=== PATIENT | male | born 1940 | race Caucasian/White ===

== ENCOUNTER 2017-01-03 11:43 | Day surgery (SDC) | payer OTHER, BC ==
[2017-01-02 15:04] VITALS: BMI 28.7
--- NOTE | 2017-01-03 12:22 | HP ---
Satellite [facility] - Chief Complaint History of Present Illness: 76 year old man with renal failure who requires creation of AV access for dialysis. He is right handed. 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) Musculoskeletal: Yes: Chronic low back pain - Current Medications Current Medications: Home Medications Medication Instructions Recorded Amlodipine Besylate [Norvasc -] 10 mg PO DAILY 08/10/13 Aspirin [ASA -] 81 mg PO DAILY 08/10/13 Atorvastatin Ca [Lipitor] 20 mg PO DAILY 08/10/13 Fenofibrate 145 mg PO DAILY 08/10/13 Metoprolol Tartrate [Lopressor -] 100 mg PO DAILY 08/10/13 Cholecalciferol (Vitamin D3) 1,000 unit PO DAILY 08/22/13 [Vitamin D3] Multivitamin [Multivitamins] 1 each PO DAILY 08/22/13 Omeprazole [Prilosec] 40 mg PO DAILY 08/22/13 Acetaminophen [Tylenol .Regular 650 mg PO Q4H PRN #0 tablet 08/27/13 Strength -] Ergocalciferol [Vitamin D2] 50,000 unit PO Q7D@1000 01/02/17 Satellite Physical Exam - Physical Examination General Appearance: Well Nourished ENT: Clear Lung: Clear to auscultation Heart: Regular rate & rhythm Abdomen: Soft Extremities: No edema Satellite Impression/Plan - Impression/Plan Impression: Chronic Kidney Disease Operative Procedure: Creation AV fistula left arm Date to be Performed: 01/03/17
[2017-01-03] MEDS ORDERED: HEPARIN NA (PORCINE) 5,000 UNITS/ML 1ML VIAL ONE (14:17)
[2017-01-03] MEDS ORDERED: LIDOCAINE HCL 1%, 10 MG/ML (20ML VIAL) ONE (14:17)
[2017-01-03] MEDS ORDERED: POVIDONE-IODINE OINTMENT 10% - 28.4 GM TUBE ONE (14:29)
[2017-01-03] MEDS ORDERED: MIDAZOLAM HCL 2 MG/2 ML SINGLE DOSE VIAL ONE ×2 (14:47→14:58)
[2017-01-03] MEDS ORDERED: LIDOCAINE HCL 1%, 10 MG/ML (50 mL VIAL) IJ ONE (15:07)
[2017-01-03] MEDS ORDERED: PROPOFOL 20 ML ONE (15:11)
[2017-01-03] MEDS ORDERED: PAPAVERINE HCL 30 MG/1 ML 10 ML VIAL NR ONE (15:14)
[2017-01-03] MEDS ORDERED: POVIDONE-IODINE OINTMENT 10% - 28.4 GM TUBE TP ONE (15:22)
[2017-01-03] MEDS ORDERED: ONDANSETRON 4 MG/2 ML VIAL IVPUSH PRN (16:08)
[2017-01-03] MEDS ORDERED: PROMETHAZINE HCL 25 MG/1 ML VIAL IVPUSH PRN (16:08)
--- NOTE | 2017-01-03 16:08 | OP ---
Operative Note - Note: Operative Date: 01/03/17 Pre-Operative Diagnosis: Renal failure Operation: Creation AV fistula left arm Findings: Patent cephalic vein and brachial and radial artery Post-Operative Diagnosis: Same as Pre-op Surgeon: Kosta Garcia Chief Operating Officer: Doretha Vela Anesthesiologist/CONSUMER LOAN SPECIALIST: Eric Leblanc Anesthesia: Fractional Estimated Blood Loss (mls): 25
[2017-01-03] MEDS ORDERED: ACETAMINOPHEN 325 MG TABLET (FP) PO PRN ×2 (16:09→16:26)
[2017-01-03] MEDS ORDERED: SODIUM CHLORIDE 1,000 ML IV SCH (16:15)
[2017-01-03] MEDS ORDERED: oxyCODONE HCL 5 MG TABLET PO PRN (16:26)
[2017-01-03 18:06] VITALS: TEMP 97.8
--- NOTE | 2017-01-03 18:26 | OP ---
DATE OF OPERATION: 01/03/2017 SURGEON: Kosta Hernandez M.D. ELECTION SUPERVISOR: Chet Lira PROCEDURE: Creating arteriovenous fistula, left arm. PREOPERATIVE DIAGNOSIS: Renal failure. POSTOPERATIVE DIAGNOSIS: Renal failure. ANESTHESIA: Fractional. ANESTHESIOLOGIST: Eric Leblanc M.D. OPERATIVE FINDINGS: The cephalic vein was patent in the antecubital fossa with continuous runoff in the upper arm. The brachial artery and bifurcation were patent at the same level. OPERATIVE PROCEDURE: Following routine patient identification, side and site verification, intravenous tissue was established. The left arm was prepped with Chloraprep. Timeout was performed. Then 1% Xylocaine was then infiltrated in the antecubital fossa. A longitudinal incision made. The subcutaneous tissues were then divided using cautery for hemostasis. The cephalic vein was identified. It was mobilized the length of the incision. It was ligated distally and incised. It was distended with heparin and propiverine solution. Number 5 and number 8 feeding tubes were passed proximally without resistance. The vein was filled with heparin solution. Additional side branches of the vein were then ligated and divided. Basilic vein branch was initially left intact but later ligated, as it was of small caliber. The wound was then deepened through the muscle fascia, and the brachial artery identified proximally. It was encircled with a vessel loop. Distal dissection allowed identification of the radial, ulnar, and interosseus branches, all of which were individually secured with vessel loops. The radial artery was exposed for approximately 2 cm distally. The arteries were then occluded with vessel loops and bulldog clamps and then an incision was made in the proximal radial artery extending from the origin for approximately 8 mm. The end of the vein was then spatulated and anastomosed to the side of the artery throwing suture of 6-0 Prolene. Prior to completion of the suture line, the artery was allowed to back bleed and flush, and the vein was flushed with heparin solution. Suture line was completed, and all vessels released. There was good flow through the anastomosis with a palpable thrill proximally. The wound was then closed with interrupted suture of 3-0 Vicryl in the subcutaneous tissues and skin geoffrey. A sterile dressing was applied, and the patient was taken to the recovery room in stable condition. KOSTA HERNANDEZ M.D. PRASHANT/[id number]
[2017-01-03 19:56] VITALS: BP 138/70; PULSE 73
--- NOTE | 2017-01-08 07:39 | SURG ---
Surgery [employer] Technical Lead Note [employer] Technical Lead: Doretha Vela PA-C Date of Service: 01/03/17 Diagnosis: Renal failure Procedure: Creation AV fistula left arm I was present for the entirety of the operative procedure. For further detail, please refer to operative report. Visit type - Case Type Case Type: Scheduled Admission - Emergency Emergency Visit: No - New patient This patient is new to me today: Yes Date on this admission: 01/03/17
--- NOTE | 2017-01-08 07:46 | SURG ---
Surgery Icu Nurse Note Icu Nurse: Doretha Vela PA-C Date of Service: 01/03/17 Diagnosis: Renal failure Procedure: left upper extremity arteriovendous fistula I was present for the entirety of the operative procedure. For further detail, please refer to operative report. Visit type - Case Type Case Type: Scheduled Admission - Emergency Emergency Visit: No - New patient This patient is new to me today: Yes Date on this admission: 01/03/17
== END 2017-01-03 19:10 | disposition home or self-care (01) ==
LOC: JASU-SURG 11:43
PROVIDERS: ATTEND Surgery
PROC: 03180ZD Bypass Left Brachial Artery to Upper Arm Vein, Open Approach (ICD-10-PCS; principal; 2017-01-03 13:30)
DX: I12.0 Hypertensive chronic kidney disease with stage 5 chronic kidney disease or end stage renal disease (principal)
CPT/HCPCS: 36415; 84132; 94760; J1644

== ENCOUNTER 2021-04-19 04:29 | Day surgery (SDC) | payer OTHER, BC ==
[2021-04-15 12:41] VITALS: BMI 25.1
[2021-04-19] MEDS ORDERED: MIDAZOLAM HCL 2 MG/2 ML SINGLE DOSE VIAL ONE (13:53)
[2021-04-19] MEDS ORDERED: ceFAZolin SODIUM 1 GM VIAL IVPB ONE (14:07)
[2021-04-19] MEDS ORDERED: LIDOCAINE HCL 2% JELLY 10 ML CARTRIDGE ONE (14:15)
[2021-04-19] MEDS ORDERED: LIDOCAINE HCL 2% JELLY 10 ML CARTRIDGE TP ONE (14:23)
[2021-04-19] MEDS ORDERED: ONDANSETRON 4 MG/2 ML VIAL IVPUSH PRN (14:46)
[2021-04-19] MEDS ORDERED: ONDANSETRON 4 MG/2 ML VIAL ONE (14:54)
[2021-04-19] MEDS ORDERED: LACTATED RINGERS SOLUTION 1,000 ML IV SCH (15:00)
[2021-04-19] MEDS ORDERED: hydrALAZINE HCL 20 MG/ML VIAL ONE (15:31)
[2021-04-19] MEDS ORDERED: LABETALOL HCL 5 MG/1 ML (100MG/20 ML VIAL) IVPUSH ONE (16:21)
[2021-04-19 17:21] VITALS: BP 172/85; PULSE 100; TEMP 97.9
== END 2021-04-19 17:10 | disposition home or self-care (01) ==
LOC: JASU-SURG 04:29
PROVIDERS: ATTEND Urology
PROC: 0T7D8DZ Dilation of Urethra with Intraluminal Device, Via Natural or Artificial Opening Endoscopic (ICD-10-PCS; principal; 2021-04-19 13:00)
DX: N40.1 Benign prostatic hyperplasia with lower urinary tract symptoms (principal); N13.8 Other obstructive and reflux uropathy; N39.0 Urinary tract infection, site not specified; R33.8 Other retention of urine; E11.9 Type 2 diabetes mellitus without complications; Z94.0 Kidney transplant status
CPT/HCPCS: C9740; L8699; 82962

== ENCOUNTER 2023-11-18 21:48 | Inpatient (IN) | payer OTHER, BC ==
[2023-11-18] MEDS ORDERED: FAMOTIDINE 20 MG/50 ML IVPB 20 MG/50 ML MG IVPB ONE (22:27)
[2023-11-18] MEDS ORDERED: ONDANSETRON 4 MG/2 ML VIAL ONE (22:27)
[2023-11-18] MEDS: ONDANSETRON 4 MG/2 ML VIAL IVPUSH ONE (22:33)
[2023-11-18] MEDS ORDERED: ACETAMINOPHEN INJECTION 100 ML ONE (22:37)
[2023-11-18] MEDS: SODIUM CHLORIDE 1,000 ML IV STA (22:56)
[2023-11-18] MEDS: ACETAMINOPHEN 1000 MG/100 ML BAG IVPB ONE (22:56)
[2023-11-18 23:01] LABS: HEMATOCRIT 35.8 % (35.4-49); HEMOGLOBIN 12.3 GM/dL (11.7-16.9); MCH 29.3 pg (25.7-33.7); MCHC 34.3 g/dl (32.0-35.9); MEAN CELL VOLUME 85.3 fl (80-96); MEAN PLT VOLUME 8.6 fl (7.5-11.1); PLATELET COUNT 168 10^3/uL (134-434); RBC 4.19 M/mm3 (4.00-5.60); RDW 15.5 % (11.9-15.9)
[2023-11-18] MEDS ORDERED: GENTAMICIN SO4 80 MG/2 ML VIAL ONE (23:04)
[2023-11-18 23:07] LABS: INR 1.05 (0.83-1.09); PROTHROMBIN TIME (PATIENT) 12.1 SEC (9.7-13.0)
[2023-11-18 23:09] LABS: ACTIVATED PTT 25.1 SECONDS (25.2-36.5); WHITE BLOOD COUNT 11.8 K/mm3 (4.0-10.0)
[2023-11-18 23:21] LABS: POTASSIUM 4.5 mmol/L (3.5-5.1)
[2023-11-18 23:24] LABS: ALBUMIN 3.7 g/dl (3.4-5.0); BLOOD UREA NITROGEN 34.1 mg/dL (7-18); CALCIUM 10.4 mg/dL (8.5-10.1); MAGNESIUM 1.6 mg/dL (1.8-2.4)
[2023-11-18 23:27] LABS: CREATININE 1.8 mg/dL (0.55-1.3); PHOSPHOROUS 2.2 mg/dL (2.5-4.9)
[2023-11-18 23:29] LABS: BILIRUBIN,TOTAL 0.4 mg/dL (0.2-1); TOT PROT 6.6 g/dl (6.4-8.2)
[2023-11-18 23:48] LABS: ANISOCYTOSIS 1+; MACROCYTOSIS 0
[2023-11-19] MEDS: GENTAMICIN 80 MG PREMIXED IVPB 80 MG/100 ML BAG IVPB STA (00:04)
[2023-11-19 00:05] LABS: LACTIC ACID 2.2 mmol/L (0.4-2.0)
[2023-11-19 02:01] LABS: EPI CELLS 1 /uL (0-25.1); HYALINE CASTS 1 /uL (0-3.1); PH,URINE 5.5 (5.0-8.0); URINE APPEARANCE CLEAR; URINE BACTERIA 62 /uL (0-1359); URINE BILIRUBIN NEGATIVE (NEGATIVE); URINE COLOR YELLOW; URINE GLUCOSE (UA) NEGATIVE (NEGATIVE); URINE KETONE NEGATIVE (NEGATIVE); URINE LEUK ESTERASE 2+ (NEGATIVE); URINE NITRITE NEGATIVE (NEGATIVE); URINE PROTEIN 1+ (NEGATIVE); URINE RBC 82 /uL (0-23.9); URINE UROBILINOGEN 0.2 mg/dL (0.2-1.0); URINE WBC 881 /uL (0-25.8)
[2023-11-19 02:51] LABS: LACTIC ACID 2.1 mmol/L (0.4-2.0)
[2023-11-19] MEDS ORDERED: HEPARIN NA (PORCINE) 5,000 UNITS/ML 1ML VIAL ONE ×2 (06:05→15:18)
[2023-11-19] MEDS: HEPARIN NA (PORCINE) 5,000 UNITS/ML 1ML VIAL SQ SCH (06:16)
[2023-11-19 06:38] LABS: CALCIUM 9.6 mg/dL (8.5-10.1)
[2023-11-19 06:39] LABS: ALBUMIN 3.2 g/dl (3.4-5.0); BLOOD UREA NITROGEN 31.7 mg/dL (7-18); MAGNESIUM 1.8 mg/dL (1.8-2.4)
[2023-11-19 06:42] LABS: CREATININE 1.9 mg/dL (0.55-1.3); PHOSPHOROUS 2.3 mg/dL (2.5-4.9)
[2023-11-19 06:43] LABS: BILIRUBIN,TOTAL 0.5 mg/dL (0.2-1)
[2023-11-19 07:25] LABS: HEMATOCRIT 34.1 % (35.4-49); HEMOGLOBIN 11.4 GM/dL (11.7-16.9); MCHC 33.3 g/dl (32.0-35.9); MEAN CELL VOLUME 84.3 fl (80-96); MEAN PLT VOLUME 8.6 fl (7.5-11.1); PLATELET COUNT 145 10^3/uL (134-434); RBC 4.05 M/mm3 (4.00-5.60); RDW 15.3 % (11.9-15.9); WHITE BLOOD COUNT 16.7 K/mm3 (4.0-10.0)
[2023-11-19] MEDS: SODIUM CHLORIDE 1,000 ML IV SCH (07:25)
[2023-11-19] MEDS ORDERED: TAMSULOSIN HCL 0.4 MG CAP ONE (08:33)
[2023-11-19] MEDS: TAMSULOSIN HCL 0.4 MG CAP PO SCH (08:38)
[2023-11-19 09:00] LABS: ANISOCYTOSIS 0; MACROCYTOSIS 0
[2023-11-19] MEDS: INSULIN ASPART SLIDING SCALE (NOVOLOG) 1 VIAL SQ SCH (09:16)
[2023-11-19] MEDS ORDERED: METOPROLOL TARTRATE 50 MG TABLET (FP) ONE (10:12)
[2023-11-19] MEDS ORDERED: LOSARTAN POTASSIUM 50 MG TABLET ONE (10:12)
[2023-11-19] MEDS: predniSONE 5 MG TABLET (UD) PO SCH (10:18)
[2023-11-19] MEDS: LOSARTAN POTASSIUM 50 MG TABLET PO SCH (10:18)
[2023-11-19] MEDS: METOPROLOL TARTRATE 25 MG TABLET (FP) PO SCH (10:18)
[2023-11-19] MEDS: TACROLIMUS ANHYDROUS 1 MG CAPSULE PO SCH (10:28)
[2023-11-19] MEDS ORDERED: ASPIRIN 81 MG CHEWABLE TABLETS ONE (11:08)
[2023-11-19] MEDS: ASPIRIN COATED 81 MG TABLET.EC PO SCH (11:11)
[2023-11-19 11:23] LABS: LACTIC ACID 2.2 mmol/L (0.4-2.0)
[2023-11-19] MEDS: SODIUM CHLORIDE 0.45% 1,000 ML IV SCH (17:33)
[2023-11-19] MEDS ORDERED: ONDANSETRON 4 MG TABLET PO PRN (19:09)
[2023-11-19] MEDS: INSULIN (LEVEMIR) 100 UNITS/ML UNITS SQ SCH (21:22)
[2023-11-19] MEDS: ROSUVASTATIN CA 20 MG TABLET PO SCH (21:22)
[2023-11-19] MEDS: PIPERACILLIN/TAZOB 3.375 GM 3.375 GM in DEXTROSE 5%-WATER - 50 ML IVPB SCH (22:21)
[2023-11-20 01:24] VITALS: BMI 34.7
[2023-11-20 06:54] LABS: BASO % 0.6 % (0-2.0); EOS % 2.4 % (0-4.5); HEMATOCRIT 33.4 % (35.4-49); HEMOGLOBIN 11.1 GM/dL (11.7-16.9); LYMPH % 5.4 % (8-40); MCH 28.3 pg (25.7-33.7); MCHC 33.1 g/dl (32.0-35.9); MEAN CELL VOLUME 85.3 fl (80-96); MEAN PLT VOLUME 8.6 fl (7.5-11.1); MONO % 7.1 % (3.8-10.2); NEUT % 84.5 % (42.8-82.8); PLATELET COUNT 129 10^3/uL (134-434); RBC 3.91 M/mm3 (4.00-5.60); RDW 15.7 % (11.9-15.9); WHITE BLOOD COUNT 9.1 K/mm3 (4.0-10.0)
[2023-11-20 06:59] LABS: HEMOGLOBIN 11.2 GM/dL (11.7-16.9); MCH 28.9 pg (25.7-33.7); MCHC 33.9 g/dl (32.0-35.9); MEAN CELL VOLUME 85.3 fl (80-96); MEAN PLT VOLUME 8.6 fl (7.5-11.1); PLATELET COUNT 122 10^3/uL (134-434); RBC 3.87 M/mm3 (4.00-5.60); RDW 15.5 % (11.9-15.9)
[2023-11-20 07:26] LABS: CALCIUM 10.2 mg/dL (8.5-10.1); MAGNESIUM 1.8 mg/dL (1.8-2.4)
[2023-11-20 07:27] LABS: BLOOD UREA NITROGEN 26.2 mg/dL (7-18)
[2023-11-20 07:29] LABS: CREATININE 1.5 mg/dL (0.55-1.3)
[2023-11-20 07:30] LABS: TOT PROT 5.5 g/dl (6.4-8.2)
[2023-11-20 07:32] LABS: BILIRUBIN,TOTAL 0.6 mg/dL (0.2-1)
[2023-11-20] MEDS: PANTOPRAZOLE 40 MG TABLET PO SCH (09:13)
[2023-11-20] MEDS ORDERED: ASPIRIN 81 MG CHEWABLE TABLETS PO SCH (10:00)
[2023-11-20] MEDS: SODIUM CHLORIDE 0.45% 1,000 ML IV SCH ×2 (14:30→18:51)
[2023-11-20] MEDS: amLODIPine BESYLATE 2.5 MG TABLET (FP) PO ONE (17:02)
[2023-11-20] MEDS ORDERED: FAMOTIDINE 20 MG/50 ML IVPB 20 MG/50 ML MG IVPB ONE (18:25)
[2023-11-20] MEDS ORDERED: ONDANSETRON 4 MG TABLET PO PRN (18:25)
[2023-11-20] MEDS: ROSUVASTATIN CA 20 MG TABLET PO SCH (21:23)
[2023-11-20] MEDS: METOPROLOL TARTRATE 50 MG TABLET (FP) PO SCH (21:23)
[2023-11-20] MEDS: HEPARIN NA (PORCINE) 5,000 UNITS/ML 1ML VIAL SQ SCH (21:23)
[2023-11-20] MEDS: INSULIN (LEVEMIR) 100 UNITS/ML UNITS SQ SCH (21:23)
[2023-11-20] MEDS: PIPERACILLIN/TAZOB 3.375 GM 3.375 GM in DEXTROSE 5%-WATER - 50 ML IVPB SCH (21:24)
[2023-11-20] MEDS: TACROLIMUS ANHYDROUS 1 MG CAPSULE PO SCH (21:32)
[2023-11-21] MEDS: INSULIN ASPART SLIDING SCALE (NOVOLOG) 1 VIAL SQ SCH (06:36)
[2023-11-21 08:04] LABS: HEMATOCRIT 28.4 % (35.4-49); HEMOGLOBIN 9.6 GM/dL (11.7-16.9); MCH 28.6 pg (25.7-33.7); MCHC 33.6 g/dl (32.0-35.9); MEAN CELL VOLUME 84.9 fl (80-96); MEAN PLT VOLUME 8.8 fl (7.5-11.1); PLATELET COUNT 102 10^3/uL (134-434); RBC 3.35 M/mm3 (4.00-5.60); WHITE BLOOD COUNT 5.1 K/mm3 (4.0-10.0)
[2023-11-21 08:34] LABS: POTASSIUM 3.2 mmol/L (3.5-5.1)
[2023-11-21 08:39] LABS: BLOOD UREA NITROGEN 22.2 mg/dL (7-18)
[2023-11-21 08:41] LABS: CREATININE 1.2 mg/dL (0.55-1.3)
[2023-11-21 08:57] LABS: CALCIUM 8.5 mg/dL (8.5-10.1)
[2023-11-21 09:04] VITALS: BP 150/74; PULSE 84; RESP 18; TEMP 98.8
[2023-11-21] MEDS: TAMSULOSIN HCL 0.4 MG CAP PO SCH (09:05)
[2023-11-21] MEDS: ASPIRIN COATED 81 MG TABLET.EC PO SCH (09:10)
[2023-11-21] MEDS: PANTOPRAZOLE 40 MG TABLET PO SCH (09:10)
[2023-11-21] MEDS: predniSONE 5 MG TABLET (UD) PO SCH (09:10)
[2023-11-21] MEDS: LOSARTAN POTASSIUM 50 MG TABLET PO SCH (09:10)
[2023-11-21] MEDS: POTASSIUM CHLORIDE ORAL LIQUID 20 MEQ/15 ML PO ONE (13:14)
[2023-11-21] MEDS: MAGNESIUM OXIDE 400 MG TABLET (FP) PO ONE (13:14)
== END 2023-11-21 14:15 | disposition home health service (06) | DRG 690 ==
LOC: JER 21:48 → JERBED 11-19 02:53 → J4W 11-19 19:56 → J8W 11-20 18:21
PROVIDERS: ADMIT Internal Medicine; ATTEND Nurse Practitioner Family
DX: N39.0 Urinary tract infection, site not specified (principal); Z94.0 Kidney transplant status; I24.89 Other forms of acute ischemic heart disease; E87.20 Acidosis, unspecified; I50.32 Chronic diastolic (congestive) heart failure; I25.10 Atherosclerotic heart disease of native coronary artery without angina pectoris; E78.5 Hyperlipidemia, unspecified; K21.9 Gastro-esophageal reflux disease without esophagitis; N40.0 Benign prostatic hyperplasia without lower urinary tract symptoms; E11.65 Type 2 diabetes mellitus with hyperglycemia; N28.1 Cyst of kidney, acquired; K52.9 Noninfective gastroenteritis and colitis, unspecified; Z79.4 Long term (current) use of insulin; D47.2 Monoclonal gammopathy; R91.1 Solitary pulmonary nodule; I11.0 Hypertensive heart disease with heart failure
CPT/HCPCS: 0241U-QW; 36415; 71045-TC-FY; 76776-TC; 80048; 80053; 80061; 80197; 81003; 82962; 83036; 83605; 83690; 83735; 84100; 84443; 84484; 85025; 85027; 85610; 85730; 87040; 87086; 93005; 93010; 97116-GP; 97161-GP; 99285-25; J0131; J1644

== ENCOUNTER 2024-11-06 06:20 | Day surgery (SDC) | payer OTHER, BC ==
[2024-11-06] MEDS ORDERED: BUPIVACAINE HCL/PF 0.75% 10 ML VIAL ONE (07:27)
[2024-11-06] MEDS ORDERED: LIDOCAINE HCL/PF 1% SDV 5ML VIAL ONE (07:27)
[2024-11-06 09:01] VITALS: RESP 20
[2024-11-06 10:17] VITALS: BP 124/61; PULSE 85; TEMP 97.8
== END 2024-11-06 10:03 | disposition home or self-care (01) ==
LOC: JASU-SURG 06:20
PROVIDERS: ATTEND Pain Medicine Pain Medicine
PROC: 3E0T33Z Introduction of Anti-inflammatory into Peripheral Nerves and Plexi, Percutaneous Approach (ICD-10-PCS; 2024-11-06)
PROC: 3E0T3BZ Introduction of Anesthetic Agent into Peripheral Nerves and Plexi, Percutaneous Approach (ICD-10-PCS; principal; 2024-11-06 09:34)
DX: M47.816 Spondylosis without myelopathy or radiculopathy, lumbar region (principal)
CPT/HCPCS: 76000-TC-FY